=== PATIENT | male | born 1960 | race Caucasian/White ===

== ENCOUNTER 2019-05-21 08:44 | Inpatient (IN) ==
--- NOTE | 2019-05-06 16:29 | PAT Medication Instructions ---
Medication Instructions Date of Service May 06, 2019 Home Medications gabapentin 300 mg PO HS tramadol 50 mg PO UD PRN Take morning of surgery With a small sip of water, OTHERWISE NOTHING TO EAT OR DRINK AFTER MIDNIGHT: tramadol 50 mg PO UD PRN (okay to take up to 4 hours prior to surgery if needed) Take evening before surgery gabapentin 300 mg PO HS tramadol 50 mg PO UD PRN (if needed) Other Notes If you have any questions please call us at [phone] or [phone] or [phone] or [phone]
--- NOTE | 2019-05-07 10:03 | Anesthesiology Consultation ---
Date of Service May 07, 2019 Assessment & Plan (1) Encounter for pre-operative examination: - Awaiting review preop testing (labs, EKG, CXR). - Awaiting PCP response regarding elevated BP (Dr. Cardona). Chart Review Chart Review: Patient seen in Pre Admission Testing Teaching & Discussion Pre-Anesthesia Teaching/Discussion Notes: Instructed NPO after midnight before surgery,except medications with 15 cc of water. Medication instructions provided according to the PAT guidelines. History Surgery Operation Date: 05/21/19 13:00 Proposed Procedures p L4-S1 Decompression and Fusion, Spinal Cord Monitoring - Maximo Pringle, DO Height/Weight Height: 5 ft 10 in Weight: 90.5 kg Allergies Allergy/AdvReac Type Severity Reaction Status Date / Time No Known Allergies Allergy Verified 04/30/19 12:11 Medications Home Medications Medication Instructions Recorded Confirmed Last Taken gabapentin 300 mg PO HS 04/30/19 04/30/19 Unknown tramadol 50 mg PO UD PRN 04/30/19 04/30/19 Unknown Past Medical History Medical History Glaucoma History of high blood pressure controlled without medications History of sleep apnea no device since UPPP (restest was negative) Spinal stenosis lower back stiffness with RLE radiculopathy Exercise / Class Metabolic Activity II 4-5 Yardwork/Stairs/Walk up hill (one flight of stairs (no chest pain/no sob)) Past Family History Family History Sister Family history of diabetes mellitus Aunt Family history of diabetes mellitus Uncle Family history of diabetes mellitus Past Surgical History Surgical History History of appendectomy History of carpal tunnel surgery of right wrist History of colonoscopy History of tonsillectomy and adenoidectomy UPPP History of tooth extraction History of vasectomy Past Anesthesia History No Family Hx of Anesthesia Complications and Other Coughing after teeth extraction procedure. No similar issues with other surgeries/anesthesia. History of PONV No Hx of PONV and No Hx of Motion Sickness Social History Smoking Status: Never smoker Do You Dip or Chew Tobacco: Yes (1 CAN A DAY/ADVISED NPO) Hx Alcohol Use: No substance use type: marijuana Last Used Substance Other:: DAILY MARIJUANA INHALED HS- ADVISED Review of Systems Patient denies chest pain, shortness of breath, dyspnea on exertion, reflux, cough, wheezing, palpitations. Physical Exam Vital Signs VITALS BP 153/103 (150/92 with manual recheck) P 67 TEMP 98.5 SP02 95 RESP 16 PHYSICAL Full neck and c-spine range of motion. Full TMJ range of motion. TMD 4 finger breaths Mallampati Score 1 Dentition: no teeth on upper (full upper dentures) Lungs: clear throughout to auscultation Cardiac: regular rate and rhythm, no murmurs noted Spine: normal Carotid arteries: negative bruit Extremities: no edema Trimmed larry
--- NOTE | 2019-05-07 11:14 | XRay Report ---
XR chest Pre-admission PA/Lat CLINICAL HISTORY: Preoperative chest COMPARISON STUDY: No previous studies for comparison. FINDINGS: The cardiac and mediastinal contours are normal. There is no evidence of focal pulmonary co nsolidation. There is no evidence of failure. No pleural effusions are visualized.[On the lateral vie w, there is an equivocal 8 mm lytic lesion within a lower posterior rib IMPRESSION: 1. Equivocal 8 mm lytic lesion within a lower posterior rib visualized only on the lateral view 2. Otherwise no active disease in the chest. Electronically signed by: Benito Castañeda M.D. 05/07/2019 11:12 AM
[2019-05-07 11:42] LABS: BUN Creatinine Ratio 16.4 (10-20); Calcium 8.9 mg/dl (8.5-10.1); Creatinine Clr Calc Pharmacy 94.7 ml/min; Est GFR (African American) 101.1; Est GFR (Non-African American) 87.3
[2019-05-07 13:08] LABS: Basophils # (auto) 0.02 K/uL (0-0.2); Basophils % (auto) 0.3 %; Eosinophils # (auto) 0.09 K/uL (0-0.5); Eosinophils % (auto) 1.2 %; Hematocrit (blood only) 43.9 % (42-52); Hemoglobin 15.3 g/dL (14.0-18.0); Immature Granulocytes # (auto) 0.01 K/uL (0.00-0.02); Immature Granulocytes % (auto) 0.1 %; Lymphocytes # (auto) 1.75 K/uL (1.2-3.4); Lymphocytes % (auto) 22.6 %; Mean Corpuscular Hemoglobin 29.4 pg (25-34); Mean Corpuscular Hgb Conc 34.9 g/dL (32-36); Mean Corpuscular Volume 84.3 fL (80-100); Mean Platelet Volume 9.7 fL (7.4-10.4); Monocytes # (auto) 0.68 K/uL (0.11-0.59); Monocytes % (auto) 8.8 %; Neutrophils # (auto) 5.19 K/uL (1.4-6.5); Platelet Count 273 K/uL (130-400); RDW Coefficient of Variation 13.4 % (11.5-14.5); RDW Standard Deviation 40.5 fL (36.4-46.3); Red Blood Count 5.21 M/uL (4.7-6.1); White Blood Count 7.74 K/uL (4.8-10.8)
[2019-05-07 13:09] LABS: Appearance Urine Clear (Clear); Bilirubin Urine Negative (Negative); Blood Urine Negative (Negative); Color Urine Yellow; Glucose Urine UA Negative (Negative); Ketones Urine Negative (Negative); Leukocyte Esterase Urine Negative (Negative); Nitrite Urine Negative (Negative); Protein Urine Negative (Negative); Urobilinogen Urine Negative (Negative); pH Urine 5.5 (4.5-7.5)
[2019-05-07 13:17] LABS: Partial Thromboplastin Time 26.3 Seconds (21.0-31.0); Prothrombin Time 10.3 Seconds (9.0-12.0)
[~2019-05-21 08:44] MED LIST: ACETAMINOPHEN 500 MG TAB PO SCH; CEFAZOLIN 2000MG 2,000 MG/15 ML SYR IV SCH; CeleBREX 200 MG CAP PO SCH; GABAPENTIN 600 MG DOSE PO SCH; HYDROmorphone INJ 2 MG/ML SYR/VIAL ONE; LR 15ML/HR IV SCH; MIDAZOLAM HCL 1 MG/ML 2ML VIAL ONE; fentaNYL citrate 100 MCG/2 ML VIAL ONE
[2019-05-21] MEDS ORDERED: DEXAMETHASONE SOD INJ 4 MG/ML VIAL ONE (09:31)
[2019-05-21] MEDS ORDERED: ONDANSETRON INJ 2 MG/ML 2 ML VIAL ONE (09:31)
[2019-05-21] MEDS ORDERED: LIDOCAINE HCL 2% 2 ML VIAL/AMP(20MG/ML) INFIL ONE (09:31)
[2019-05-21] MEDS ORDERED: NEOSTIGMINE METHYLSULFATE 1 MG/ML 10ML VIAL ONE (09:31)
[2019-05-21] MEDS ORDERED: PROPOFOL IV EMULSION 10 MG/ML 20 ML VIAL IV ONE (09:31)
[2019-05-21] MEDS ORDERED: HYDROmorphone INJ 2 MG/ML SYR/VIAL ONE ×2 (09:31→11:02)
[2019-05-21] MEDS ORDERED: GLYCOPYRROLATE 0.2 MG/ML VIAL ONE (09:31)
[2019-05-21] MEDS ORDERED: ROCURONIUM BROMIDE 10 MG/ML 5 ML VIAL ONE (09:31)
[2019-05-21] MEDS ORDERED: HYDROmorphone INJ 1 MG/ML SYRINGE IV PRN ×2 (09:43→14:08)
[2019-05-21] MEDS ORDERED: ONDANSETRON INJ 2 MG/ML 2 ML VIAL IV PRN ×2 (09:43→14:08)
[2019-05-21] MEDS ORDERED: LABETALOL HCL IV 5 MG/ML 20ML IV PRN (09:43)
[2019-05-21] MEDS ORDERED: ATROPINE SULFATE 0.1 MG/ML 10ML SYR IV PRN (09:43)
--- NOTE | 2019-05-21 09:52 | History & Physical Bridge Note ---
Date of Service May 21, 2019 History & Physical Bridge Note I have examined the patient, reviewed the History & Physical and in the interval since the performance of the History & Physical I have noted the following changes of clinical significance: no changes noted
--- NOTE | 2019-05-21 09:53 | History & Physical Report ---
Date of Service May 21, 2019 Assessment & Plan (1) Neurogenic claudication due to lumbar spinal stenosis: Decompression fusion L4-S1 Present on Admission?: Yes History of Present Illness Chief Complaint: Back and bilateral leg pain Primary Care Provider: NO PCP This is a 58-year-old male who presents with chronic persistent back and bilateral leg pain. After failing extensive course of nonoperative care is here for surgical intervention. Allergies Allergy/AdvReac Type Severity Reaction Status Date / Time No Known Allergies Allergy Verified 05/21/19 09:09 Home Medications Home Medications Medication Instructions Recorded Confirmed Type gabapentin 300 mg PO HS 04/30/19 05/21/19 History tramadol 50 mg PO Q8 PRN 04/30/19 05/21/19 History Past Med/Surg History Medical History Glaucoma History of high blood pressure controlled without medications History of sleep apnea no device since UPPP (restest was negative) Spinal stenosis lower back stiffness with RLE radiculopathy Surgical History History of appendectomy History of carpal tunnel surgery of right wrist History of colonoscopy History of tonsillectomy and adenoidectomy UPPP History of tooth extraction History of vasectomy Family History Sister Family history of diabetes mellitus Aunt Family history of diabetes mellitus Uncle Family history of diabetes mellitus Social History Preferred Language: Yoruba Communication Ability: Effective Tuber Machine Cutter Required: No Beliefs That Will Affect Care: None Current Living Situation: Spouse Other Information That Helps Us Care for You: No Feels Safe at Home: Yes Smoking Status: Never smoker Do You Dip or Chew Tobacco: Yes (1 CAN A DAY/ADVISED NPO) ; Tobacco Cessation Education Requested by Patient: No Hx Alcohol Use: No Physical Exam Physical Exam: Patient is alert and oriented neurologically intact. Results & Data Vital Signs (Past 12 Hours) Vital Signs Temp Pulse Resp BP Pulse Ox 05/21/19 09:07 36.4 C L 58 L 20 144/82 H 94
[2019-05-21] MEDS ORDERED: BUPIVACAINE/EPINEPHRINE 0.25% 1:200,000 30 ML VIAL ONE (10:01)
[2019-05-21] MEDS ORDERED: BACITRACIN INJ 50,000 UNIT VIAL ONE (10:01)
[2019-05-21] MEDS ORDERED: fentaNYL citrate 100 MCG/2 ML VIAL ONE ×7 (10:40→12:43)
[2019-05-21] MEDS ORDERED: VOLUVEN IN NSS IV ONE (11:59)
[2019-05-21] MEDS ORDERED: PHENYLEPHRINE 100MCG/ML 5ML SYR ONE (12:05)
[2019-05-21] MEDS ORDERED: LABETALOL HCL IV 5 MG/ML 20ML IV ONE (12:05)
[2019-05-21] MEDS ORDERED: ESMOLOL HCL INJ 10 MG/ML 10ML VIAL IV ONE (12:05)
[2019-05-21] MEDS ORDERED: ePHEDrine sulfate 50 MG/ML AMP ONE (12:05)
[2019-05-21] MEDS ORDERED: ePHEDrine sulfate 50 MG/ML SYR ONE (12:05)
[2019-05-21] MEDS ORDERED: FLOSEAL HEMOSTATIC MATRIX 10ML TOP ONE (12:31)
--- NOTE | 2019-05-21 12:50 | Operative Report ---
Post Operative Report Pre & Post Diagnosis Operation Date: 05/21/19 10:25 Pre-Op Diagnosis: Lumbar spinal stenosis with neurogenic claudication Post-Op Diagnosis: Same I identified the patient and participated in the time-out.: Yes Procedure Operation Date: 05/21/19 10:25 Actual Procedures #1 lumbar decompression with bilateral medial facetectomies and foraminotomies L3-4 L4-5 L5-S1. #2 posterior spinal fusion L4-5 L5-S1. #3 placement posterior instrumentation L4-5 L5-S1. #4 interbody fusion L4-5 L5-S1. #5 placement of titanium 15 x 26 mm cage at L4-5 and 12 x 26 mm cage at L5-S1. #6 placement of locally harvested morselized autograft in the posterior lateral gutters. #7 placement infuse collagen sponge, master graft in the posterior lateral gutters ostial amp and interbody space. Surgeon Maximo Pringle, DO Clinical Law Professor None Estimated Blood Loss 525 Findings Consistent with Post-Op Diagnosis Specimens None Indications This is a 58-year-old male presents with above-mentioned diagnosis after failed extensive course of nonoperative care elected to go above-mentioned procedure. Description of Procedure Patient was met with identified informed consent obtained. Patient was then taken to the operative suite underwent intubation placed in the prone position on the Surya table on top of the Rodolfo frame. All bony prominences well- padded eyes inspected to ensure no external pressure placed upon. This point the lumbar spine was prepped and draped in normal sterile fashion. Sharp dissection with the assistance of Bovie cautery was warm down to and exposing the lamina and transverse processes of L4-L5 and the sacral ala bilaterally. From a caudal cephalad fashion complete laminectomy L5 L4 and partial laminectomy L3 was performed including bilateral medial facetectomies and foraminotomies addressing severe stenosis and neural compression. Pedicle sc rews were then placed in L4-L5 and S1 levels bilaterally with assistance of fluoroscopy and the appropriately sized rosalie placed. By way of a transforaminal portion radically discectomy of L5-S1 was performed endplates curetted to subcortical bleeding bone and a 12 x 26 mm titanium cage filled with ostium bone graft tapped in position. Then proceeded to L4-[address] of a transforaminal approach on the right a complete discectomy performed endplates curetted to subcortical being bone and a 15 x 26 mm titanium cage filled with osteo-bone graft tapped in position. The rods were then compressed locked in final position bilaterally. The transverse processes of L4-L5 and sacral ala burred to subcortical bleeding bone. Infuse collagen sponge master graft and local autograft placed in the posterior lateral gutters. 15 round ROSANA drain inserted. Incision was then closed with 1 Vicryl in the fascia 2-0 Vicryl subcutaneously and 4 Monocryl for final skin closure. Steri-Strip sterile dressings placed. Patient will continue to PACU stable condition. Please note spinal cord monitoring was utilized that the procedure no changes noted. I attest to the content of the Intraoperative Record and any orders documented therein. Any exceptions are noted below.
[2019-05-21] MEDS ORDERED: KETOROLAC 30 MG/ML VIAL ONE (12:51)
--- NOTE | 2019-05-21 12:58 | Fluoroscopy Report ---
LUMBAR SPINE, INTRAOPERATIVE FLUOROSCOPY HISTORY: L4 S1 decompression fusion. FLUOROSCOPY TIME: 22 seconds. FINDINGS: Intraoperative fluoroscopy was provided for the lumbar spine. 2 fluoroscopic spot images we re obtained. Posterior decompression fusion from L4 through S1 with pedicle screws and rods. The hard eckert appears intact. IMPRESSION: Fluoroscopy provided for a L4-S1 posterior decompression and fusion. Electronically signed by: Phu Westbrook M.D. 05/21/2019 12:56 PM
--- NOTE | 2019-05-21 14:05 | Anesthesiology Progress Note ---
Date of Service May 21, 2019 Anesthesia Post Procedure Vital Signs Vital Signs: Temp Pulse Pulse Resp BP Pulse Ox 05/21/19 13:25 67 14 122/70 97 05/21/19 13:15 71 14 133/70 100 05/21/19 13:05 64 12 146/83 H 98 05/21/19 12:56 36.4 C L 79 12 135/80 98 05/21/19 09:07 36.4 C L 58 L 20 144/82 H 94 Pain Intensity Back: Pain Intensity: 0 Transfer of Care Handoff Completed per policy Notes Mental Status: alert / awake / arousable Patient Amnestic to Procedure: Yes Nausea / Vomiting: adequately controlled Pain: adequately controlled Airway Patency, RR, SpO2: stable & adequate BP & HR: stable & adequate Hydration State: stable & adequate Anesthetic Complications: no major complications apparent
[2019-05-21] MEDS ORDERED: ALUMINUM/MAGNESIUM SUSP 30 ML UDC PO PRN (14:08)
[2019-05-21] MEDS ORDERED: MAGNESIUM HYDROXIDE SUSP 30 ML UDC PO PRN (14:08)
[2019-05-21] MEDS ORDERED: ACETAMINOPHEN 1,000 MG/100 ML VIAL IV PRN (14:08)
[2019-05-21] MEDS ORDERED: BISACODYL 10 MG SUPP PR PRN (14:08)
[2019-05-21] MEDS ORDERED: LORazepam 0.5 MG TAB PO PRN (14:08)
[2019-05-21] MEDS ORDERED: OXYCODONE HCL IR 5 MG TAB (IMMEDIATE RELEASE) PO PRN (14:08)
[2019-05-21] MEDS ORDERED: LORazepam 0.5 MG/1 ML VIAL IV PRN (14:08)
[2019-05-21] MEDS ORDERED: DO NOT ADMINISTER PNEUMOCOCCAL VACCINE PRN (14:08)
[2019-05-21] MEDS ORDERED: SOD PHOSPHATE/SOD BIPHOSPHATE ENEMA 132 ML BTL PR PRN (14:08)
[2019-05-21] MEDS ORDERED: PROMETHAZINE HCL 12.5 MG in SODIUM CHLORIDE 0.9% 50 ML IV PRN (14:08)
[2019-05-21] MEDS ORDERED: ACETAMINOPHEN 500 MG TAB PO PRN (14:08)
[2019-05-21] MEDS ORDERED: ONDANSETRON 4 MG OD TAB PO PRN (14:08)
[2019-05-21] MEDS ORDERED: NALOXONE HCL 0.4 MG/1 ML VIAL/CARP IV PRN (14:08)
[2019-05-21] MEDS ORDERED: HYDROmorphone INJ 0.5 MG/0.5 ML SYR IV PRN (14:08)
[2019-05-21] MEDS ORDERED: FAMOTIDINE 20 MG TAB PO PRN (14:08)
[2019-05-21] MEDS ORDERED: METOCLOPRAMIDE HCL INJ 5 MG/ML 2 ML VIAL IV PRN (14:08)
[2019-05-21] MEDS ORDERED: DO NOT ADMINISTER FLU VACCINE PRN (14:08)
[2019-05-21] MEDS: KETOROLAC 30 MG/ML VIAL IV SCH ×2 (15:31→21:22)
[2019-05-21] MEDS: LACTATED RINGER'S 1,000 ML IV SCH (18:38)
[2019-05-21] MEDS: CEFAZOLIN 2000MG 2,000 MG/15 ML SYR IV SCH (18:59)
[2019-05-21] MEDS: DOCUSATE SODIUM/SENNA 50/8.6MG TAB PO SCH (21:22)
[2019-05-21] MEDS: GABAPENTIN 300 MG CAP PO SCH (21:22)
[2019-05-22] MEDS: LACTATED RINGER'S 1,000 ML IV SCH ×2 (01:12→06:00)
[2019-05-22] MEDS: CEFAZOLIN 2000MG 2,000 MG/15 ML SYR IV SCH (01:12)
[2019-05-22] MEDS: KETOROLAC 30 MG/ML VIAL IV SCH ×2 (05:15→10:56)
[2019-05-22] MEDS: POLYETHYLENE (MIRALAX) 17 GM PACK PO SCH ×4 (05:15→23:46)
[2019-05-22 05:33] LABS: Hematocrit (blood only) 35.5 % (42-52); Hemoglobin 11.9 g/dL (14.0-18.0); Immature Granulocytes # (auto) 0.03 K/uL (0.00-0.02); Immature Granulocytes % (auto) 0.2 %; Lymphocytes # (auto) 0.93 K/uL (1.2-3.4); Lymphocytes % (auto) 6.7 %; Mean Corpuscular Hemoglobin 29.1 pg (25-34); Mean Corpuscular Hgb Conc 33.5 g/dL (32-36); Mean Corpuscular Volume 86.8 fL (80-100); Mean Platelet Volume 8.9 fL (7.4-10.4); Monocytes # (auto) 0.73 K/uL (0.11-0.59); Monocytes % (auto) 5.3 %; Neutrophils # (auto) 12.19 K/uL (1.4-6.5); Neutrophils % (auto) 87.8 %; Platelet Count 215 K/uL (130-400); RDW Coefficient of Variation 13.6 % (11.5-14.5); RDW Standard Deviation 43.8 fL (36.4-46.3); Red Blood Count 4.09 M/uL (4.7-6.1); White Blood Count 13.88 K/uL (4.8-10.8)
[2019-05-22 06:13] LABS: BUN Creatinine Ratio 16.2 (10-20); Calcium 8.2 mg/dl (8.5-10.1); Creatinine Clr Calc Pharmacy 106.1 ml/min; Est GFR (African American) 110.5; Est GFR (Non-African American) 95.4; Potassium 4.2 mmol/L (3.5-5.1)
--- NOTE | 2019-05-22 08:32 | Anesthesiology Progress Note ---
Date of Service May 22, 2019 Anesthesia Post Procedure Vital Signs Vital Signs: Temp Pulse Pulse Resp BP Pulse Ox 05/22/19 08:05 36.9 C 77 18 138/79 96 05/22/19 03:12 36.4 C L 48 L 16 109/68 94 05/21/19 23:17 36.4 C L 52 L 16 115/63 93 05/21/19 18:41 36.3 C L 74 17 108/73 92 05/21/19 16:56 36.5 C 76 17 110/67 92 05/21/19 15:50 36.4 C L 75 18 108/67 91 05/21/19 14:47 73 16 119/77 94 05/21/19 14:17 55 L 16 118/77 94 05/21/19 13:50 36.3 C L 63 16 118/67 96 05/21/19 13:25 67 14 122/70 97 05/21/19 13:15 71 14 133/70 100 05/21/19 13:05 64 12 146/83 H 98 05/21/19 12:56 36.4 C L 79 12 135/80 98 05/21/19 09:07 36.4 C L 58 L 20 144/82 H 94 Pain Intensity Back: Pain Intensity: 0 Notes Mental Status: alert / awake / arousable and participated in evaluation Patient Amnestic to Procedure: Yes Nausea / Vomiting: adequately controlled Pain: adequately controlled Airway Patency, RR, SpO2: stable & adequate BP & HR: stable & adequate Hydration State: stable & adequate Anesthetic Complications: no major complications apparent and Pt Satisfied with anesthetic care
--- NOTE | 2019-05-22 08:38 | Orthopedic Progress Note ---
Date of Service May 22, 2019 Assessment & Plan (1) Neurogenic claudication due to lumbar spinal stenosis: Stable continue physical therapy monitor ROSANA output hopefully discharge him next few days. Present on Admission?: Yes Subjective Patient's back pain is controlled leg symptoms improved. Physical Exam Physical Exam: Vision is comfortable he is ambulating with a walker. Neurologically intact. Results & Data Vital Signs (Past 12 Hours) Vital Signs Temp Pulse Pulse Resp BP Pulse Ox 05/22/19 08:05 36.9 C 77 18 138/79 96 05/22/19 03:12 36.4 C L 48 L 16 109/68 94 05/21/19 23:17 36.4 C L 52 L 16 115/63 93
[2019-05-22] MEDS: DOCUSATE SODIUM/SENNA 50/8.6MG TAB PO SCH (22:19)
[2019-05-22] MEDS: GABAPENTIN 300 MG CAP PO SCH (22:20)
[2019-05-22] MEDS: TRAMADOL HCL 50 MG TABLET PO PRN (22:20)
[2019-05-23] MEDS: POLYETHYLENE (MIRALAX) 17 GM PACK PO SCH ×2 (05:33→12:36)
[2019-05-23] MEDS: TRAMADOL HCL 50 MG TABLET PO PRN ×2 (05:37→13:33)
--- NOTE | 2019-05-23 11:11 | Discharge Summary ---
Date of Service May 23, 2019 Admission HPI Per Admitting Provider This is a 58-year-old male who presents with chronic persistent back and bilateral leg pain. After failing extensive course of nonoperative care is here for surgical intervention. Principal Diagnosis Lumbar spinal stenosis with neurogenic claudication Discharge Data Allergies Allergy/AdvReac Type Severity Reaction Status Date / Time No Known Allergies Allergy Verified 05/21/19 09:09 Consultations 05/21/19 14:08 Consult Case Management - Discharge Planning Routine Procedures Performed Operation Date: 05/21/19 10:25 Actual Procedures p L4-S1 Decompression and Fusion, with Spinal Cord Monitoring, application of BMP(Not Applicable) - Maximo Pringle, Ordered Studies 05/21/19 10:25 FL fluoroscopy <1hr Routine FL lumbar spine 2-3V Routine Hospital Course (1) Neurogenic claudication due to lumbar spinal stenosis: Patient underwent lumbar decompression fusion tolerated this well was taken to the orthopedic for postoperative. Postop day 1 he was up and ambulating leg symptoms markedly improved. He progressed to postop day #2. ROSANA drain decreasing appropriately. He is ambulating without difficulty good strength testing. Leg symptoms improved. Subsequently discharged home. Discharge orders and instructions can be found chart for further review. Total Time Total Time Spent Total Time Spent (In Minutes): 20 minutes Discharge Plan Discharge Items Patient Disposition: Home - Self-Care Reason For Visit: LUMBAR SPINAL STENOSIS W/OUT NEUROGENIC CLAUDICATI Discharge Diagnosis: Lumbar spinal stenosis with neurogenic claudication Activity: Per Instructions section Non-emergency contact: Primary Care Provider Call non-emergency contact if: you have any medication questions Follow-up/Referrals: PCP,NO [Primary Care Provider] - Diet: Regular Addtl Attending Provider Instructions: ACTIVITY RECOMMENDATIONS: SELF CARE INSTRUCTIONS AFTER THORACIC/LUMBAR FUSIONS 1. You may walk to your tolerance. It is good exercise for your legs and back. Expect some back and intermittent leg aches and pains. 2. You may perform "counter-top" level activities (make a sandwich, vince with a project, etc.). 3. No bending or lifting of more than 10 pounds or back twisting of any nature (roll like a log when turning in bed). 4. You may ride in a car for 20-30 minutes at a time. No driving until after your first visit with your doctor. 5. Frequent changes of position and restricting sitting to 30 minutes at a time will help limit the amount of back spasms and stiffness you may experience. 6. You may discontinue the use of ambulatory aids (cane, crutches, etc.) once your strength and confidence allow. 7. You may exchange underwriting consultant the shower and let water strike your incision when you ar rive home at least once daily. Do not take a tub bath, sit in a hot tub or go into a swimming pool until after your first recheck in the office. SPECIAL CARE INSTRUCTIONS: VERY IMPORTANT TO READ AND REVIEW A. Your surgical incision has been closed with a cosmetic suture under the skin that will dissolve in about 6 weeks. In 14 days, you can use a pair of clean scissors and cut the suture that is left outside of the skin at the ends of your incision. 1. The small skin tapes can be removed 7 days after surgery if they have not fallen off by that point. 2. You may keep the wound open to air as much as possible to promote healing after post-op day number 5 unless told otherwise by your doctor. 3. If you think the wound looks like it is becoming infected (redness or worsening drainage) and/or you are experiencing fever, chill or worsening back pain and muscle spasms, contact the office so that we may evaluate you as soon as possible. B. Complications are uncommon, but please contact us if you have any signs or symptoms of: 1. wound infection (fever higher than 102.5 degrees F, redness, separation of wound, drainage, or increasing pain from the incision) 2. blood clots in legs (pain, swelling, redness and warmth in legs) 3. urinary tract infection (fever higher than 102.5 degrees F, burning upon urination or increased frequency of urination) 4. nerve problems (inability to walk on your toes or heels, numbness, loss of bowel or bladder control) 5. any other symptoms that concern you C. Please call the office at if you have any concerns or questions about your operation or recovery. D. No smoking! Smoking drastically decreases the chance of a solid fusion. E. Do not take any anti-inflammatory medications (Indocin, Advil, Motrin, Aspirin, Naprosyn, etc.) as these may inhibit the chance of a solid fusion. Tylenol is okay to take for pain. MANAGING PAIN AFTER SPINAL SURGERY 1. Narcotic medication is intended for short-term use and will be provided for surgical pain. Surgical pain usually lasts for a period of 4-6 weeks. Narcotic medication includes Percocet, Vicodin, Darvocet, Tylenol #3 or Lortab. 2. Longer-term pain is more appropriately treated with non-narcotic medication such as Tylenol ES. 3. Muscle spasm is not appropriately treated with narcotics. Muscle relaxers such as Soma, Flexeril or Skelaxin can be used along with Tylenol ES. 4. Remember that we all live with some "aches and pains". This is not unusual or uncommon after an injury or as we get older. a. Back pain is expected and may include muscle spasms for 4 to 6 weeks after surgery. The pain should gradually improve. If the pain worsens for no apparent reason, please contact the office. b. Intermittent leg pain may also be experienced and should not be concerned about unless it worsens for no apparent reason. If so, please contact the office. 5. We will provide appropriate medication within the normal guidelines of their prescribed use. We will also be very cautious and aware of potential abuse and extended duration of patients' medication needs. a. Pain medications are for your comfort and to assist with sleep and rest so that the tissue can heal. They are not provided in order to return to normal activity and should not be used through the day. To do so or worsening pain at night can result from ongoing tissue damage and development of tolerance to the prescribed medicine. 6. Please allow 2-3 days to process refills. Prescriptions will not be mailed but must be picked up at the office. FOLLOW UP VISIT: Keep your scheduled follow-up appointment. Any questions, please call the office at . Pending Studies at Discharge: No Stand-Alone Forms: My [employer], Smoking Cessation Medications and DC Order Prescriptions: New tramadol 50 mg tablet 50 mg PO Q6H PRN (Reason: pain, moderate) Qty: 30 RF: 0 oxycodone 5 mg tablet 5 mg PO Q6H PRN (Reason: pain, severe) Qty: 30 RF: 0 Continued tramadol 50 mg Tablet 50 mg PO Q8 PRN (Reason: Pain) RF: 0 gabapentin 300 mg Capsule 300 mg PO HS RF: 0 Discharge Orders: Discharge Order (Routine); Ordered 05/23/19 Ordered By: Maximo Pringle Admission Data Admit Date/Time: 05/21/19 13:15 Attending Provider: Maximo Pringle Admit Provider: Maximo Pringle Primary Care Provider: PCP,NO
== END 2019-05-23 13:44 | disposition home or self-care (01) | DRG 455 ==
LOC: ASU 08:44 → 3W 13:15